=== PATIENT | female | born 1950 | race Caucasian/White ===

== ENCOUNTER 2019-11-08 14:51 | Emergency (ER) | payer OTHER, MEDICARE ==
[2019-11-08] MEDS ORDERED: Ketorolac 30 MG/ML SDV IVPUSH ONE (15:16)
[2019-11-08] MEDS ORDERED: Acetaminophen/oxyCODONE 325-5 MG Tab PO STA (15:17)
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
== END 2019-11-08 16:48 | disposition home or self-care (01) ==
LOC: JP.ED 14:51
DX: S20.212A Contusion of left front wall of thorax, initial encounter (principal); F17.210 Nicotine dependence, cigarettes, uncomplicated; E11.9 Type 2 diabetes mellitus without complications; Z88.2 Allergy status to sulfonamides; V49.50XA Passenger injured in collision with unspecified motor vehicles in traffic accident, initial encounter
CPT/HCPCS: 71101; 96374; 99284; A9270; J1885; 99283

== ENCOUNTER 2019-11-11 05:20 | Emergency (ER) | payer MEDICARE ==
--- NOTE | 2019-11-11 06:51 | CRLCR ---
INDICATION: Left rib pain TECHNIQUE: Chest and left ribs 3 views. COMPARISON: Chest and left rib series 11/08/2019 FINDINGS: Cardiovascular and mediastinum: Normal heart size with mild aortic tortuosity. Lungs and pleural spaces: No pleural effusion or pneumothorax. Discoid atelectasis left midlung. Bones and soft tissues: Detailed oblique images of the left ribs demonstrate no fractures or bone lesions. Ureteral stent on the left, partially included. IMPRESSION: No significant interval change compared to the study 3 days prior. No definite fracture or pneumothorax. Dictated by Alvarez Somers MD @ Nov 11 2019 6:43AM Signed by Dr. Alvarez Somers @ Nov 11 2019 6:50AM
[2019-11-11] MEDS ORDERED: Sodium Chloride 0.9% 10 ML Syringe FLUSH PRN ×2 (07:11→07:41)
[2019-11-11] MEDS ORDERED: Sodium Chloride 0.9% 1,000 ML IV SCH (07:15)
[2019-11-11] MEDS ORDERED: Ketorolac 30 MG/ML SDV IVPUSH ONE (07:19)
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
[2019-11-11] MEDS ORDERED: Sodium Chloride 0.9% 75 ML IV ONE (07:41)
[2019-11-11] MEDS ORDERED: Iopamidol 612 MG/ML 100 ML Bottle IV PRN (07:41)
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
== END 2019-11-11 10:53 | disposition home or self-care (01) ==
LOC: JP.ED 05:20
DX: S22.32XA Fracture of one rib, left side, initial encounter for closed fracture (principal); E11.9 Type 2 diabetes mellitus without complications; F17.210 Nicotine dependence, cigarettes, uncomplicated; Z88.2 Allergy status to sulfonamides; Z79.4 Long term (current) use of insulin; V89.2XXA Person injured in unspecified motor-vehicle accident, traffic, initial encounter; Y92.411 Interstate highway as the place of occurrence of the external cause
CPT/HCPCS: 36415; 71101; 71260; 80048; 85025; 96361; 96374; 99285; J1885; J7030; J7050; Q9967; 99283

== ENCOUNTER 2020-08-10 22:35 | Emergency (ER) | payer MEDICARE ==
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
[2020-08-10] MEDS ORDERED: fentaNYL 100 MCG/2 ML SDV IVPUSH ONE (22:53)
[2020-08-10] MEDS ORDERED: Iopamidol 612 MG/ML 500 ML Multipack Bottle IV ONE (22:58)
[2020-08-10] MEDS ORDERED: Sodium Chloride 0.9% 10 ML Syringe FLUSH PRN (22:58)
[2020-08-10] MEDS ORDERED: Sodium Chloride 0.9% 75 ML IV SCH (23:00)
[2020-08-11] MEDS ORDERED: HYDROmorphone 0.5 MG/0.5 ML Syringe IVPUSH ONE (00:44)
--- NOTE | 2020-08-11 01:11 | CRLCT ---
For Patients: As a result of the Century Cures Act, medical imaging exams and procedure reports are released immediately into your electronic medical record. You may view this report before your referring provider. If you have questions, please contact your health care provider. INDICATION: Trauma. TECHNIQUE: Axial images. Sagittal and coronal reconstructions. 100 mL Isovue-300 IV. COMPARISON: 11/11/2019. FINDINGS: Normal heart size. No pericardial effusion. Normal caliber thoracic aorta. Atherosclerotic changes including coronary artery calcifications. No pulmonary contusion or laceration. Minimal bibasilar atelectasis. No pleural fluid or pneumothorax. In the upper abdomen, there is dilatation of the left renal collecting system, which appears stable. However, there is also uroepithelial thickening of the left renal pelvis. No acute bony abnormality is identified. Incidental bone island. IMPRESSION: 1. No CT evidence of an acute intrathoracic abnormality. 2. Uroepithelial thickening of the left renal pelvis, suggesting an acute infectious or inflammatory process. Clinically correlate. Dictated by Carlton Lowery MD @ 08/11/2020 1:09:36 AM Please note that all CT scans at this facility use dose modulation, iterative reconstruction, and/or weight-based dosing when appropriate to reduce radiation dose to as low as reasonably achievable. Dictated by: Carlton Lowery MD @ 08/11/2020 01:09:42 (Electronically Signed)
[2020-08-11] MEDS ORDERED: Cyclobenzaprine 10 MG Tab PO ONE (01:35)
[2020-08-11] MEDS ORDERED: Ketorolac 30 MG/ML SDV IVPUSH ONE (01:35)
--- NOTE | 2020-08-11 11:09 | CR ---
Humerus Lt CLINICAL HISTORY: Pain FINDINGS: 2 views left humerus show no acute fracture within the humerus. IMPRESSION: Negative left humerus.
== END 2020-08-11 08:20 | disposition home or self-care (01) ==
LOC: JP.ED 22:35
DX: S20.212A Contusion of left front wall of thorax, initial encounter (principal); M25.512 Pain in left shoulder; M54.2 Cervicalgia; E11.9 Type 2 diabetes mellitus without complications; Z79.4 Long term (current) use of insulin; Z79.82 Long term (current) use of aspirin; Z88.2 Allergy status to sulfonamides; W18.30XA Fall on same level, unspecified, initial encounter
CPT/HCPCS: 36415; 71260; 73060; 80048; 85025; 96374; 96375; 99284; A9270; J1170; J1885; J3010; Q9967